=== PATIENT | male | born 1965 | race Caucasian/White ===

== ENCOUNTER 2020-09-12 04:51 | Day surgery (SDC) | payer OTHER ==
[2020-09-10 10:01] VITALS: BMI 28.3
[2020-09-12] MEDS ORDERED: MIDAZOLAM HCL 2 MG/2 ML SINGLE DOSE VIAL ONE ×2 (09:28)
[2020-09-12] MEDS ORDERED: PROPOFOL 20 ML ONE (09:30)
[2020-09-12] MEDS ORDERED: LIDOCAINE HCL 1%, 10 MG/ML (20ML VIAL) ONE (10:31)
[2020-09-12] MEDS ORDERED: BUPIVACAINE HCL/PF 0.5% (5MG/ML) 10 ML VIAL ONE (10:31)
[2020-09-12] MEDS ORDERED: ceFAZolin 2 GRAM PREMIX BAG IVPB ONE (10:52)
[2020-09-12] MEDS ORDERED: LIDOCAINE HCL 1%, 10 MG/ML (20ML VIAL) INF ONE (10:52)
[2020-09-12] MEDS ORDERED: ceFAZolin SODIUM 1 GM VIAL ONE (11:04)
[2020-09-12] MEDS ORDERED: BUPIVACAINE HCL/PF 0.5% (5MG/ML) 10 ML VIAL IJ ONE (11:48)
[2020-09-12 14:32] VITALS: BP 150/70; PULSE 84; TEMP 98
== END 2020-09-12 14:00 | disposition home or self-care (01) ==
LOC: JASU-SURG 04:51
PROVIDERS: ATTEND Podiatrist Foot Surgery
PROC: 0QBP0ZZ Excision of Left Metatarsal, Open Approach (ICD-10-PCS; principal; 2020-09-12 11:30)
DX: M89.9 Disorder of bone, unspecified (principal)
CPT/HCPCS: 88304-TC; 88311-TC